=== PATIENT | female | born 1950 | race Caucasian/White ===

== ENCOUNTER → 2024-01-07 | Outpatient (CLI) | payer MEDICARE, OTHER ==
[~2024-01-07] MED LIST: CYCL10 PO; HYDACE5 PO; Hair, Skin & N1 EACH PO; NAPR550 PO; OMEP10ER PO
[2024-01-07 20:00] LABS: Creatinine, Urine Random 80.9 mg/dL (27.00-270.00); Microalb/Creat Ratio UR, Rand 8.677 mg/g (0.000-30.000); Microalbumin, Random Urine 7.02 mg/L (0.000-20.000)
== END ==
LOC: LAB SHORT 16:34 → LAB EV 16:34
PROVIDERS: Physician Assistant
DX: E11.59 Type 2 diabetes mellitus with other circulatory complications (principal); E11.69 Type 2 diabetes mellitus with other specified complication
CPT/HCPCS: 82043; 82570

== ENCOUNTER 2024-02-28 09:39 | Day surgery (SDC) | payer MEDICARE, OTHER ==
[~2024-02-28] VITALS: Ht 157.5 cm; Wt 86.4 kg
[~2024-02-28 09:39] MED LIST changes: +Lactated Ringer's 1,000 ML IV ONE; +propofoL 50 ML IV ONE
[2024-02-28] MEDS ORDERED: METF500 (10:42)
[2024-02-28] MEDS ORDERED: JARDIANCE10 MG (10:43)
[2024-02-28] MEDS ORDERED: Crestor40 MG (10:43)
[2024-02-28] MEDS ORDERED: LANS30EC (10:43)
[2024-02-28] MEDS ORDERED: VITAMIN D33000 UNIT (10:44)
[2024-02-28] MEDS ORDERED: B-121000 MC3 (10:45)
[2024-02-28] MEDS ORDERED: Lactated Ringer's 1,000 ML IV ONE (11:00)
== END 2024-02-28 11:56 | disposition home or self-care (01) ==
LOC: ORSCSDS 09:39
PROVIDERS: Internal Medicine Gastroenterology
PROC: 0DB58ZX Excision of Esophagus, Via Natural or Artificial Opening Endoscopic, Diagnostic (ICD-10-PCS; principal; 2024-02-28 10:45)
DX: K22.70 Barrett's esophagus without dysplasia (principal); K21.00 Gastro-esophageal reflux disease with esophagitis, without bleeding; Z95.0 Presence of cardiac pacemaker; E11.9 Type 2 diabetes mellitus without complications; Z79.84 Long term (current) use of oral hypoglycemic drugs; Z79.899 Other long term (current) drug therapy
CPT/HCPCS: 82947; 88305; J2704; J7120

== ENCOUNTER → 2024-05-19 | Outpatient (CLI) | payer MEDICARE, OTHER ==
[~2024-05-19] MED LIST changes: +B-121000 MC3; +Crestor40 MG; +JARDIANCE10 MG; +LANS30EC; -Lactated Ringer's 1,000 ML IV ONE; +METF500; +VITAMIN D33000 UNIT; -propofoL 50 ML IV ONE
[2024-05-19 17:22] LABS: Source, Urine Clean Catch
[2024-05-19 19:23] LABS: Appearance, Urine Hazy (Clear); Bilirubin, Urine Neg (Neg); Blood, Urine 5+ (Neg); Color, Urine Yellow (P-Yellow); Glucose Qualitative, Urine 4+ (Neg); Ketones, Urine 2+ (Neg); Leukocyte Esterase, Urine 1+ (Neg); Nitrite, Urine Neg (Neg); Protein, Urine 1+ (Neg); Urobilinogen, Urine NORM (Normal)
[2024-05-19 19:38] LABS: Bacteria Many /hpf; Squamous Epithelial Cells Mod /hpf (Few); Yeast/Fungi Urine Many /hpf
== END ==
LOC: LAB SHORT 17:20 → LAB 17:20
PROVIDERS: Physician Assistant
DX: R30.0 Dysuria (principal)
CPT/HCPCS: 81001; 87086

== ENCOUNTER 2025-02-14 06:07 | Day surgery (SDC) | payer MEDICARE, OTHER ==
[~2025-02-14] VITALS: Ht 157.5 cm; Wt 82.1 kg
[~2025-02-14 06:07] MED LIST changes: -B-121000 MC3; +B-121000 MC3 PO; -Crestor40 MG; +Crestor40 MG PO; +ELIQUIS2.5 MG PO; -JARDIANCE10 MG; +JARDIANCE10 MG PO; -LANS30EC; +LANS30EC PO; -METF500; +METF500 PO; +OLME20 PO; +SPIR25 PO; -VITAMIN D33000 UNIT; +VITAMIN D33000 UNIT PO
[2025-02-14] MEDS ORDERED: Heparin Sodium 1000 Units/ML 10ML MDV ONE (06:35)
[2025-02-14] MEDS ORDERED: NS 1,000 ML IV ONE ×2 (06:35→07:10)
[2025-02-14] MEDS ORDERED: CeFAZolin Sodium 1000 mg Vial ONE (06:35)
[2025-02-14 06:40] VITALS: BP 120/55
[2025-02-14] MEDS ORDERED: CeFAZolin Sodium 2,000 MG VIAL ONE (07:09)
[2025-02-14] MEDS ORDERED: FentaNYL Citrate 50 MCG/ML 2 ML Injection ONE (07:10)
[2025-02-14] MEDS ORDERED: Midazolam HCl 1MG / ML 2ML Vial ONE (07:10)
[2025-02-14] MEDS ORDERED: NS 100 ML IV ONE ×2 (07:11→07:33)
[2025-02-14] MEDS ORDERED: Phenylephrine HCl 100 MCG/ML-NS 10MLSYR (1MG/10ML) ONE (08:10)
--- NOTE | 2025-02-14 09:20 | NUR ---
PT ARRIVES BACK TO RECOVERY ROOM IN RECLINER, ALERT AND ORIENTED AT THIS TIME. PT RIJ SITE WNL, SOFT, NO HEMATOMA NO OOZING. PT HAS BANDAGE OVER LEFT CHEST WALL PACEMAKER SITE, NO OOZING OR SWELLING. ICE PACK APPLIED TO SITE PER DR. RODRIGUEZ. PT. UP TO USE THE BATHROOM WITH OUT DIFFICULTY. DENIES PAIN AT THIS TIME. BREAKFAST TRAY PROVIDED, AT BESIDE. VSS. CHEST XRAY ORDERD.
[2025-02-14 09:24] VITALS: BP 146/106
[2025-02-14 09:30] VITALS: BP 139/64
[2025-02-14 09:47] VITALS: BP 122/72
--- NOTE | 2025-02-14 10:43 | NUR ---
DR. Jennings in to see pt. Chest xray reviewed. Pt cleared for discharge at this itme. Pt vss remain stable. IV removed catheter intact. Pt. to drive pt home. taken via wheelchair to exit.
== END 2025-02-14 10:45 | disposition home or self-care (01) ==
LOC: MHTC 06:07
DX: Z45.010 Encounter for checking and testing of cardiac pacemaker pulse generator [battery] (principal); I11.0 Hypertensive heart disease with heart failure; I50.20 Unspecified systolic (congestive) heart failure; E11.9 Type 2 diabetes mellitus without complications; E78.2 Mixed hyperlipidemia; Z88.8 Allergy status to other drugs, medicaments and biological substances; Z79.84 Long term (current) use of oral hypoglycemic drugs; Z79.899 Other long term (current) drug therapy
CPT/HCPCS: 33228; 71045; 76937; 99152; 99153; C1785; C1894; J0461; J0690; J1644; J2250; J2371; J3010; J7030; J7040